=== PATIENT | female | born 1945 | race Caucasian/White ===

== ENCOUNTER → 2018-02-09 | Outpatient (CLI) | payer MEDICARE ==
[2018-02-09 08:45] LABS: ALBUMIN 3.5 gm/dl (3.1-4.5); BUN 14 mg/dl (7-24); CHLORIDE 103 mmol/L (98-107); CHOLESTEROL 156 mg/dL (<200); CREATININE 0.59 mg/dL (0.55-1.02); POTASSIUM 3.5 mmol/L (3.5-5.1); SGOT/AST 14 IU/L (3-35); SGPT/ALT 19 U/L (12-78); SODIUM 137 mmol/L (136-145)
[2018-02-09 08:55] LABS: ALKALINE PHOSPHATASE 109 U/L (45-117); HDL CHOLESTEROL 53 mg/dl (40-60); LDL CHOLESTEROL 78 mg/dL (9-159); TOTAL PROTEIN 7.9 gm/dL (6.4-8.2); TRIGLYCERIDES 127 mg/dl (<150); VLDL CHOLESTEROL 25 mg/dL (6-40)
[2018-02-10 11:05] LABS: CREATININE,URINE 43.5 mg/dL (Not Estab.); MICRO ALBUMIN/CRE RATIO 14.9 (0.0-30.0)
== END | disposition home or self-care (01) ==
LOC: LAB 07:05
PROVIDERS: General Practice
DX: E78.5 Hyperlipidemia, unspecified (principal); I10 Essential (primary) hypertension; E11.65 Type 2 diabetes mellitus with hyperglycemia; E66.3 Overweight; Z79.4 Long term (current) use of insulin

== ENCOUNTER → 2018-04-01 | Outpatient (CLI) | payer MEDICARE ==
[2018-04-01 19:13] LABS: FREE T4 0.89 ng/dl (0.76-1.46)
[2018-04-01 19:23] LABS: THYROID STIM HORMONE (HS) 3.09 uIU/ml (0.358-4.75)
== END | disposition home or self-care (01) ==
LOC: LAB 18:17
PROVIDERS: General Practice
DX: I10 Essential (primary) hypertension (principal); E78.5 Hyperlipidemia, unspecified; E66.3 Overweight; Z79.4 Long term (current) use of insulin

== ENCOUNTER → 2018-06-13 | Outpatient (CLI) | payer MEDICARE ==
[2018-06-13 15:06] LABS: FREE T4 1.04 ng/dl (0.76-1.46)
[2018-06-13 15:11] LABS: THYROID STIM HORMONE (HS) 5.08 uIU/ml (0.358-4.75)
== END | disposition home or self-care (01) ==
LOC: LAB 14:26
PROVIDERS: Internal Medicine Endocrinology, Diabetes & Metabolism
DX: E11.65 Type 2 diabetes mellitus with hyperglycemia (principal); I10 Essential (primary) hypertension; E03.9 Hypothyroidism, unspecified; E66.3 Overweight; E78.5 Hyperlipidemia, unspecified; Z79.4 Long term (current) use of insulin

== ENCOUNTER → 2018-08-07 | Outpatient (CLI) | payer MEDICARE ==
[2018-08-07 09:54] LABS: ALBUMIN 3.3 gm/dl (3.1-4.5); ALKALINE PHOSPHATASE 105 U/L (45-117); BUN 12 mg/dl (7-24); CHLORIDE 103 mmol/L (98-107); CHOLESTEROL 130 mg/dL (<200); CREATININE 0.66 mg/dL (0.55-1.02); FREE T4 1.15 ng/dl (0.76-1.46); HDL CHOLESTEROL 52 mg/dl (40-60); LDL CHOLESTEROL 63 mg/dL (9-159); POTASSIUM 3.9 mmol/L (3.5-5.1); SGOT/AST 16 IU/L (3-35); SGPT/ALT 16 U/L (12-78); SODIUM 138 mmol/L (136-145); TOTAL PROTEIN 7.6 gm/dL (6.4-8.2); TRIGLYCERIDES 75 mg/dl (<150); VLDL CHOLESTEROL 15 mg/dL (6-40)
[2018-08-09 10:05] LABS: CREATININE,URINE 78.5 mg/dL (Not Estab.); MICRO ALBUMIN/CRE RATIO 8.3 (0.0-30.0)
== END | disposition home or self-care (01) ==
LOC: LAB 08:27
PROVIDERS: Family Medicine
DX: E11.65 Type 2 diabetes mellitus with hyperglycemia (principal); I10 Essential (primary) hypertension; E78.5 Hyperlipidemia, unspecified; E03.9 Hypothyroidism, unspecified; E66.3 Overweight; Z79.4 Long term (current) use of insulin

== ENCOUNTER → 2019-04-25 | Outpatient (CLI) | payer MEDICARE ==
[2019-04-25 13:44] LABS: ALBUMIN 3.4 gm/dl (3.1-4.5); ALKALINE PHOSPHATASE 105 U/L (45-117); BUN 20 mg/dl (7-24); CHLORIDE 104 mmol/L (98-107); CHOLESTEROL 153 mg/dL (<200); CREATININE 0.72 mg/dL (0.55-1.02); FREE T4 1.13 ng/dl (0.76-1.46); HDL CHOLESTEROL 60 mg/dl (40-60); LDL CHOLESTEROL 73 mg/dL (9-159); POTASSIUM 3.5 mmol/L (3.5-5.1); SGOT/AST 11 IU/L (3-35); SGPT/ALT 16 U/L (12-78); SODIUM 135 mmol/L (136-145); TOTAL PROTEIN 8.2 gm/dL (6.4-8.2); TRIGLYCERIDES 98 mg/dl (<150); VLDL CHOLESTEROL 20 mg/dL (6-40)
== END | disposition home or self-care (01) ==
LOC: LAB 11:40
PROVIDERS: General Practice
DX: E11.65 Type 2 diabetes mellitus with hyperglycemia (principal); I10 Essential (primary) hypertension; E78.5 Hyperlipidemia, unspecified; E03.9 Hypothyroidism, unspecified; E66.3 Overweight; Z79.4 Long term (current) use of insulin

== ENCOUNTER → 2019-08-14 | Outpatient (CLI) | payer MEDICARE ==
[2019-08-14 16:08] LABS: FREE T4 1.39 ng/dl (0.76-1.46)
[2019-08-14 16:13] LABS: THYROID STIM HORMONE (HS) 1.95 uIU/ml (0.358-4.75)
== END | disposition home or self-care (01) ==
LOC: LAB 15:18
PROVIDERS: General Practice
DX: E03.9 Hypothyroidism, unspecified (principal)

== ENCOUNTER → 2019-10-28 | Outpatient (CLI) | payer MEDICARE ==
[2019-10-28 11:32] LABS: ALBUMIN 3.5 gm/dl (3.1-4.5); ALKALINE PHOSPHATASE 98 U/L (45-117); BUN 14 mg/dl (7-24); CHLORIDE 103 mmol/L (98-107); CHOLESTEROL 151 mg/dL (<200); CREATININE 0.81 mg/dL (0.55-1.02); HDL CHOLESTEROL 65 mg/dl (40-60); LDL CHOLESTEROL 70 mg/dL (9-159); SGOT/AST 10 IU/L (3-35); SGPT/ALT 16 U/L (12-78); SODIUM 135 mmol/L (136-145); TOTAL PROTEIN 8.1 gm/dL (6.4-8.2); TRIGLYCERIDES 82 mg/dl (<150); VLDL CHOLESTEROL 16 mg/dL (6-40)
== END | disposition home or self-care (01) ==
LOC: LAB 10:31
PROVIDERS: General Practice
DX: I10 Essential (primary) hypertension (principal); E78.2 Mixed hyperlipidemia; R53.83 Other fatigue; Z79.4 Long term (current) use of insulin

== ENCOUNTER → 2020-05-15 | Outpatient (CLI) | payer MEDICARE ==
[2020-05-15 16:10] LABS: ALBUMIN 3.3 gm/dl (3.1-4.5); ALKALINE PHOSPHATASE 79 U/L (45-117); BUN 18 mg/dl (7-24); CHLORIDE 108 mmol/L (98-107); CHOLESTEROL 154 mg/dL (<200); CREATININE 0.71 mg/dL (0.55-1.02); FREE T4 1.25 ng/dl (0.76-1.46); HDL CHOLESTEROL 59 mg/dl (40-60); LDL CHOLESTEROL 76 mg/dL (9-159); POTASSIUM 3.9 mmol/L (3.5-5.1); SGOT/AST 11 IU/L (3-35); SGPT/ALT 16 U/L (12-78); SODIUM 139 mmol/L (136-145); TRIGLYCERIDES 95 mg/dl (<150); VLDL CHOLESTEROL 19 mg/dL (6-40)
== END | disposition home or self-care (01) ==
LOC: LAB 15:19
PROVIDERS: General Practice
DX: E11.65 Type 2 diabetes mellitus with hyperglycemia (principal); E03.9 Hypothyroidism, unspecified; E78.2 Mixed hyperlipidemia

== ENCOUNTER → 2021-02-07 | Outpatient (CLI) | payer MEDICARE ==
[2021-02-07 11:57] LABS: ALBUMIN 3.2 gm/dl (3.1-4.5); BUN 13 mg/dl (7-24); CHLORIDE 103 mmol/L (98-107); CHOLESTEROL 170 mg/dL (<200); CREATININE 0.76 mg/dL (0.55-1.02); POTASSIUM 3.7 mmol/L (3.5-5.1); SGOT/AST 9 IU/L (3-35); SGPT/ALT 16 U/L (12-78); SODIUM 136 mmol/L (136-145); TOTAL PROTEIN 8.2 gm/dL (6.4-8.2); TRIGLYCERIDES 102 mg/dl (<150)
[2021-02-07 12:05] LABS: ALKALINE PHOSPHATASE 106 U/L (45-117); FREE T4 1.19 ng/dl (0.76-1.46); LDL CHOLESTEROL 91 mg/dL (9-159)
[2021-02-08 09:07] LABS: CREATININE,URINE 112.8 mg/dL (Not Estab.)
== END | disposition home or self-care (01) ==
LOC: LAB 11:00
PROVIDERS: ATTEND General Practice
DX: E11.65 Type 2 diabetes mellitus with hyperglycemia (principal); E03.9 Hypothyroidism, unspecified

== ENCOUNTER → 2021-12-15 | Outpatient (CLI) | payer MEDICARE ==
[2021-12-15 09:20] LABS: BUN 18 mg/dl (7-24); CHLORIDE 104 mmol/L (98-107); CHOLESTEROL 143 mg/dL (<200); CREATININE 0.77 mg/dL (0.55-1.02); POTASSIUM 3.9 mmol/L (3.5-5.1); SGOT/AST 11 IU/L (3-35); SGPT/ALT 19 U/L (12-78); SODIUM 134 mmol/L (136-145); TOTAL PROTEIN 7.8 gm/dL (6.4-8.2); TRIGLYCERIDES 106 mg/dl (<150)
[2021-12-15 09:27] LABS: ALKALINE PHOSPHATASE 104 U/L (45-117); FREE T4 1.22 ng/dl (0.76-1.46); LDL CHOLESTEROL 65 mg/dL (9-159)
[2021-12-16 11:07] LABS: CREATININE,URINE 89.7 mg/dL (Not Estab.)
== END | disposition home or self-care (01) ==
LOC: LAB 08:14
PROVIDERS: ATTEND General Practice
DX: E11.65 Type 2 diabetes mellitus with hyperglycemia (principal); E03.9 Hypothyroidism, unspecified

== ENCOUNTER → 2022-09-29 | Outpatient (CLI) | payer MEDICARE ==
[2022-09-29 10:48] LABS: ALKALINE PHOSPHATASE 73 U/L (46-116); BUN 15 mg/dl (9-23); CHLORIDE 102 mmol/L (98-107); CHOLESTEROL 145 mg/dL (<200); FREE T4 1.17 ng/dl (0.89-1.76); LDL CHOLESTEROL 64 mg/dL (9-159); POTASSIUM 4.1 mmol/L (3.4-5.1); SGPT/ALT 8 U/L (10-49); THYROID STIM HORMONE (HS) 4.379 uIU/ml (0.550-4.780); TOTAL PROTEIN 7.7 gm/dL (6.0-8.0); TRIGLYCERIDES 111 mg/dl (<150)
[2022-09-30 12:07] LABS: CREATININE,URINE 167.3 mg/dL (Not Estab.)
== END | disposition home or self-care (01) ==
LOC: LAB 10:01
PROVIDERS: ATTEND General Practice
DX: E11.65 Type 2 diabetes mellitus with hyperglycemia (principal); E03.9 Hypothyroidism, unspecified

== ENCOUNTER → 2023-06-02 | Outpatient (CLI) | payer MEDICARE ==
[2023-06-02 09:24] LABS: URINE CREATININE RANDOM 92.75 mg/dL
[2023-06-02 09:38] LABS: ALKALINE PHOSPHATASE 100 U/L (46-116); BUN 17 mg/dl (9-23); CHLORIDE 106 mmol/L (98-107); CHOLESTEROL 151 mg/dL (<200); FREE T4 1.19 ng/dl (0.89-1.76); LDL CHOLESTEROL 74 mg/dL (9-159); POTASSIUM 3.9 mmol/L (3.4-5.1); SGPT/ALT 11 U/L (10-49); TOTAL PROTEIN 7.5 gm/dL (6.0-8.0); TRIGLYCERIDES 87 mg/dl (<150)
== END | disposition home or self-care (01) ==
LOC: LAB 08:09
PROVIDERS: ATTEND General Practice
DX: E11.65 Type 2 diabetes mellitus with hyperglycemia (principal); E03.9 Hypothyroidism, unspecified; E78.2 Mixed hyperlipidemia